=== PATIENT | female | born 1995 | race African-American/Black ===

== ENCOUNTER 2017-10-21 18:25 | Inpatient (IN) ==
[2017-10-21] MEDS ORDERED: LACTATED RINGERS 2,000 ML IV ONE (19:30)
[2017-10-21] MEDS ORDERED: ACETAMINOPHEN 325 MG TABLET PO PRN (19:31)
[2017-10-21] MEDS ORDERED: ONDANSETRON 4 MG/2 ML VIAL IV PRN (19:31)
[2017-10-21 20:21] LABS: Basophils % 0.2 % (0.0-0.8); Eosinophils % 0.2 % (0.00-10.9); Hematocrit 35.9 VOL% (35.7-47.0); Hemoglobin 11.3 GM/DL (12.0-16.0); Immature Granulocytes % 0.5 %; Immature Granulocytes Absolute 0.08 #; Lymphocytes % 13.7 % (21.3-54.2); Mean Corpuscular HGB Conc 31.5 GM/DL (32-36); Mean Corpuscular Hemoglobin 25 PG (27-34); Mean Corpuscular Volume 78.6 FL (87-102); Mean Platelet Volume 10.8 FL (9.6-12.0); Monocytes # 1.1 10*3/uL (0.11-0.8); Monocytes % 7.3 % (1.7-12.7); Neutrophils # 11.5 10*3/uL (1.4-7.4); Neutrophils % 78.1 % (38.7-73.9); Platelet Count 218 T/CUMM (130-400); Red Blood Count 4.57 MC/CUMM (3.8-5.5); Red Cell Distribution Width 15.8 % (9.3-17.3); White Blood Count 14.7 T/CUMM (4-12)
[2017-10-21 20:51] LABS: Albumin 2.5 G/DL (3.4-5.0); Bilirubin,Total 0.4 MG/DL (0.2-1.0); Calcium 8.1 MG/DL (8.5-10.1); Osmolality,Calculated 279.1 MOS/KG (273-304); Total Protein 6.5 G/DL (6.4-8.3)
[2017-10-21] MEDS: LACTATED RINGERS 1,000 ML IV SCH (22:52)
[2017-10-21] MEDS: PIPERACILLIN/TAZOBACTAM 3,375 MG in SODIUM CHLORIDE 0.9% 100 ML IV SCH (22:52)
[2017-10-21] MEDS: DEXTROSE 5% LACTATED RINGERS 1,000 ML IV SCH (23:17)
[2017-10-22] MEDS: VANCOMYCIN INJ 1,500 MG in SODIUM CHLORIDE 0.9% 500 ML IV SCH ×2 (03:28→16:39)
[2017-10-22] MEDS: PIPERACILLIN/TAZOBACTAM 3,375 MG in SODIUM CHLORIDE 0.9% 100 ML IV SCH (06:48)
[2017-10-22] MEDS: DEXTROSE 5% LACTATED RINGERS 1,000 ML IV SCH ×2 (07:57→16:20)
[2017-10-22] MEDS: PANTOPRAZOLE 40 MG TABLET PO SCH (09:08)
[2017-10-22] MEDS: LACTATED RINGERS 1,000 ML IV SCH ×2 (16:20→21:00)
[2017-10-23] MEDS: PIPERACILLIN/TAZOBACTAM 3,375 MG in SODIUM CHLORIDE 0.9% 100 ML IV SCH ×2 (00:45→08:35)
[2017-10-23] MEDS: LACTATED RINGERS 1,000 ML IV SCH ×2 (01:23→08:35)
[2017-10-23] MEDS: VANCOMYCIN INJ 1,500 MG in SODIUM CHLORIDE 0.9% 500 ML IV SCH (06:17)
[2017-10-23] MEDS: PANTOPRAZOLE 40 MG TABLET PO SCH (08:35)
[2017-10-23 11:37] VITALS: BP 113/65
== END 2017-10-23 13:20 | disposition home or self-care (01) | DRG 813 ==
LOC: N.ED 18:25 → N.EDINP 19:31 → N.3E 20:24
PROVIDERS: ADMIT Specialist; ATTEND Specialist